=== PATIENT | male | born 1965 | race Caucasian/White ===

== ENCOUNTER 2019-05-07 15:05 | Outpatient (REF) | payer SELFPAY ==
[2019-05-07 16:33] LABS: Estmated Average Glucose 120; Hemoglobin A1C 5.8 % (4.0-6.0)
[2019-05-07 18:24] LABS: Chol HDL Ratio 6.54 mg/dL (1.0-5.00); Cholesterol 242 mg/dL (0-200); Glucose 98 mg/dL (65-115); HDL Cholesterol 37 mg/dL (60-100); LDL Cholesterol Calculated 180 mg/dL (50-129); LDL HDL Ratio 4.86 RATIO (0.00-3.22); Triglycerides 126 mg/dL (0-150)
== END 2019-05-07 15:06 | disposition home or self-care (01) ==
LOC: LAB 15:05
PROVIDERS: Family Provider Nurse Practitioner; PCP Nurse Practitioner; Visit Provider Dermatology
DX: Z13.9 Encounter for screening, unspecified (principal)
CPT/HCPCS: 80061; 82947; 83036

== ENCOUNTER 2019-07-30 13:09 | Emergency (ER) | payer OTHER, SELFPAY ==
[2019-07-30 13:18] VITALS: BP 122/97; PULSE 95; RESP 16; TEMP 36.8; O2SAT 96; BMI 32.5
--- NOTE | 2019-07-30 13:51 | ED_ITS ---
HPI - Extremity Injury (Upper) General: Chief Complaint: Extremity Injury, Upper Stated Complaint: swelling arm pain Time Seen by Provider: 07/30/19 13:43 Source: patient Mode of arrival: ambulatory Limitations: no limitations History of Present Illness: HPI narrative: Patient is a nice 53-year-old male who presents to ED today with complaints of an injury to his left arm. Patient states a few hours [place] and he was pulling on a gate to close it when the gate caught. He states he immediately felt a pop to his left elbow region and immediately began experiencing pain and swelling. Patient states his became concerned due to the amount of swelling and bruising. Patient states his contacted the orthopedic clinic who agreed to see him tomorrow. complaint: injury to: left Onset (ago): hour(s) Other Extremity Injury: Left: elbow and arm Other injuries: none Place: home Severity: moderate Relieving factors: immobilization Exacerbating factors: movement of extremity Context: other (pulling injury ) Associated symptoms: Reports no associated symptoms Treatments prior to arrival: cold therapy Review of Systems Const: Denies: fever(s) or chills Musc: Reports: extremity pain, extremity swelling, joint pain, joint swelling and limited range of motion Skin/Breast: Reports: other (bruising ) Neuro: Denies: numbness in extremities or sensory changes PFS ED PFSH: Social History (Updated 07/30/19 @ 11:11 by Yusra Gomes LPN) Smoking and tobacco status: former smoker Alcohol intake: former Adopted: No Household members: spouse Housing: House Marital status: Number of children: 3 Number of grandchildren: 2 Highest education level completed: High School Graduate service: No Pets and animals: Yes Physical Exam Const: COMMON NORMALS: no acute distress, average body habitus, patient oriented x3, no limitations, healthy appearing, alert and well nourished ORIENTATION/CONSCIOUSNESS: Yes oriented to person, Yes oriented to place and Yes oriented to time Extremity: GENERAL: Yes normal exam except as noted OTHER: pt has a large amount of swelling and bruising starting near L AC fossa and over bicep musculature; there is no obvious deformity but again the amount of swelling has probably hidden this; distal pulses intact; he reports sensory being equal bilaterally during exam; he has decreased elbow flexion and extension Neuro: COMMON NORMALS: patient oriented x3, no sensory deficits noted and gait normal SENSORIUM/ORIENTATION: Yes alert, Yes oriented to person, Yes oriented to place and Yes oriented to time Skin: OTHER: see extremity assessment Course Vital Signs: Vital signs: Vital Signs Temperature 98.3 F 07/30/19 13:18 Pulse Rate 95 07/30/19 13:18 Respiratory Rate 16 07/30/19 13:59 Blood Pressure 122/97 07/30/19 13:18 Pulse Oximetry 96 07/30/19 13:18 MDM - Extremity Injury (Upper) Imaging Data^: US soft tissue extremity : Radiologist's impression: [address] [address] Ultrasound Report Signed Patient: Jarod Gomes Unit #: [id number] : [id number] Age/Sex: 53 / M ADM Date: 07/30/19 Loc: ER Room/Bed: Attending Dr: Ordering Provider/Ordering MD: Jocelin Weaver Date of Service: 07/30/19 Procedure(s): US soft tissue/extremity 42628 Accession Number(s): [id number] Report Number: [id number] WS: [id number] INDICATION: Tendon rupture inner arm TECHNIQUE: Ultrasound soft tissue area of concern right arm FINDINGS: Diffuse subcutaneous edema with intramuscular hematoma likely due to recent trauma. Area of presumed hematoma measures 7.2 x 2.1 x 4.7 CM in the antecubital fossa. No significant vascularity. US/US soft tissue/extremity 95294 IMPRESSION: Subcutaneous edema with intramuscular hematoma measuring 7.2 CM in the area of injury antecubital fossa. Dictated By: Masood Brownlee MD Signed By: Masood Brownlee MD Signed Date/Time: 07/30/19 1503 DD/ 1459 Discharge Plan Discharge Patient Disposition: Home, Self-Care Clinical Impression: Rupture of distal biceps tendon Qualifiers: Encounter type: initial encounter Laterality: left Qualified Code(s): S46.212A - Strain of muscle, fascia and tendon of other parts of biceps, left arm, initial encounter Condition: Stable Prescriptions: New hydrocodone-acetaminophen 5-325 mg tablet 1 tab PO Q4H PRN (Reason: pain) Qty: 20 RF: 0 ibuprofen 800 mg tablet 800 mg PO Q8H PRN (Reason: pain) Qty: 20 RF: 0 Discharge Orders: Discharge Order (Routine); Ordered 07/30/19 Ordered By: Jocelin Weaver Referrals: Kong Vale, [employer] [Primary Care Provider] - Patient Instructions: Biceps Tendon Rupture Activity Restrictions/Additional Instructions: You are scheduled to see Dr. Alcala tomorrow 07/30 at 1:30. Coding Level of Care Code ED Bottoming Machine Operator for Chg Fwd Exam Expanded Problem Focused
--- NOTE | 2019-07-30 13:51 | US_ITS ---
WS: [id number] INDICATION: Tendon rupture inner arm TECHNIQUE: Ultrasound soft tissue area of concern right arm FINDINGS: Diffuse subcutaneous edema with intramuscular hematoma likely due to recent trauma. Area of presumed hematoma measures 7.2 x 2.1 x 4.7 CM in the antecubital fossa. No significant vascularity. US/US soft tissue/extremity 24803 IMPRESSION: Subcutaneous edema with intramuscular hematoma measuring 7.2 CM in the area of injury antecubital fossa.
[2019-07-30 13:59] VITALS: RESP 16
[2019-07-30] MEDS: morphine 4 mg/mL SDV 1 mL IM (13:59)
--- NOTE | 2019-07-30 14:54 | DCPLANNER ---
manager critical care was asked to schedule a follow up appointment for patient with ortho. manager critical care spoke with Pat at ortho, a follow up appointment is scheduled for , July 31, 2019 at 1:[address] Alcala.
[2019-07-30 15:17] VITALS: BP 122/84; PULSE 57; RESP 18; O2SAT 99
--- NOTE | 2019-08-28 14:12 | DCPLANNER ---
Patient did attend the appointment scheduled for 07.31.19 with ortho.
== END 2019-07-30 15:17 | disposition home or self-care (01) ==
PROVIDERS: Emergency Provider Physician Assistant; PCP Nurse Practitioner
DX: S46.212A Strain of muscle, fascia and tendon of other parts of biceps, left arm, initial encounter (principal); X50.9XXA Other and unspecified overexertion or strenuous movements or postures, initial encounter; Z87.891 Personal history of nicotine dependence
CPT/HCPCS: 12345; 76882; 96372; 99281; 99283; J2270

== ENCOUNTER → 2019-07-31 13:37 | Outpatient (BNVA) | payer OTHER, SELFPAY | PROVIDERS: PCP Nurse Practitioner; Referring Provider Nurse Practitioner; Visit Provider Orthopaedic Surgery | DX: S46.212A Strain of muscle, fascia and tendon of other parts of biceps, left arm, initial encounter (principal); X58.XXXA Exposure to other specified factors, initial encounter | CPT/HCPCS: 73080 ==

== ENCOUNTER 2019-08-06 08:58 | Day surgery (SDC) | payer OTHER, SELFPAY ==
[2019-08-06] VITALS (11 sets, daily range): BP systolic 99–148; BP diastolic 67–97; PULSE 69–80; RESP 13–18; TEMP 36.3–36.7; O2SAT 95–100
--- NOTE | 2019-08-06 | XR_ITS ---
WS: [id number] C-ARM RADIOGRAPHS LEFT ELBOW; 3 IMAGES HISTORY: LEFT bicep repair COMPARISON: 07/31/2019 Intraoperative imaging for torn biceps repair. Orthopedic clip is now present over the proximal radiu s. XR/XR elbow LT 2V [id number] IMPRESSION: Intraoperative imaging during biceps repair.
--- NOTE | 2019-08-06 | SCC_ITS ---
PROCEDURE: rupture of distal biceps from its insertion on the radial tuberosity repair 17.5 seconds of fluoroscopic guidance, for a cumulative dose of 0.71 mGy, was provided to Dr. Alcala by the radiology department. C-arm images of the LEFT elbow were saved for the patient's permanent record. MARY
[2019-08-06] MEDS: sodium chloride 0.9% 1,000 ML 100 ML IV (09:38)
--- NOTE | 2019-08-06 09:53 | ANES.PREANE2 ---
Pre-Anesthetic Assessment Pre-Anesthetic Assessment: Height/Weight: Height 1.83 m Weight 104.326 kg Temp Pulse Resp BP Pulse Ox 97.5 F L 75 18 110/74 99 08/06/19 09:21 08/06/19 09:21 08/06/19 09:21 08/06/19 09:21 08/06/19 09:21 Preop Diagnosis: Left distal biceps tendon Proposed Procedure: Operation Date: 08/06/19 10:50 Proposed Procedures p Open left distal biceps tendon repiar 39390 S46.219A(Left) - Xander Alcala MD Last intake: Intake Last Liquid Date 08/05/19 Last Liquid Time 22:00 Last Solid Date 08/05/19 Last Solid Time 21:30 Social: Social History: Tobacco (chews) and No alcohol Exam: Pre-Anes Outpt Exam: alert, oriented x 3, clear to auscultation bilaterally and regular rate & rhythm Airway: Submandibular: WNL Cervical ROM: WNL MP: 2 Dentition: Other (mult caps, implants) History/ROS: No significant history except as noted Pulmonary: Pulmonary: None reported CV/HEM: CV/HEM: None reported : : None reported Hepatic: Hepatic: None reported GI: GI: GERD (occ) Metabolic: Metabolic: None reported Musc/skel: Musc/skel: OA/DJD Neuropsych: Neuropsych: None reported Anesthetic Plan: ASA status: 2 Anesthesia: Anesthesia Evaluation, Eval. for regional block and General Risk of > 500 ml blood loss (7ml/kg in children): No Meds/Allergies Current Medications: Current Medications Generic Name Dose Route Start Last Admin Trade Name Freq PRN Reason Stop Dose Admin Sodium Chloride 1,000 mls @ 100 m ls/hr 08/06/19 09:15 08/06/19 09:38 Sodium Chloride 0.9% IV 08/07/19 09:14 100 mls/hr .Q10H KATHARINA Administration PFSH Anesthesia PFSH: Surgical History Hx of decompression of ulnar nerve Family History Father Hypertension Social History Smoking and tobacco status: former smoker Alcohol intake: former Adopted: No Household members: spouse Housing: House Marital status: Number of children: 3 Number of grandchildren: 2 Highest education level completed: High School Graduate service: No Pets and animals: Yes Data Anesthesia Cardiac Studies: No Data to Display
[2019-08-06] MEDS: midazolam 1 mg/mL INJ 2 mL 2 MG IVP (10:05)
[2019-08-06] MEDS: fentaNYL 50 mcg/mL INJ 2mL IVP (10:06)
--- NOTE | 2019-08-06 10:33 | W.PM.OPSUD ---
Surgery/Procedure H&P Update DATE OF PROCEDURE: August 06, 2019 DATE H&P PERFORMED: 07/31/19 PREOP DIAGNOSIS: Left distal biceps tendon PLANNED PROCEDURE: Operation Date: 08/06/19 10:50 Proposed Procedures p Open left distal biceps tendon repiar 95901 S46.219A(Left) - Xander Alcala MD
[2019-08-06] MEDS: clindamycin 600 MG/50 ML PREMIX 100 MG IV (11:00)
--- NOTE | 2019-08-06 12:20 | PM.OP ---
Operative Report Date of procedure: August 06, 2019 Pre-op Diagnosis: Left distal biceps tendon Post-op diagnosis: same Post-op Findings: Patient had a complete rupture of his distal biceps from its insertion on the radial tuberosity Implants: [employer] Endobutton Pathology: none sent Surgeon: Xander Alcala Anesthesia: General Estimated blood loss (mL): 10 Tourniquet time (min): 41 Complications: None Findings: Patient had a complete rupture of his distal biceps from its insertion on the radial tuberosity Condition: stable Disposition: PACU Procedure: The patient was taken to the operating room after he was given an interscalene block. He was prepped and draped in the supine position with his left arm exposed. He was given 600 mg of clindamycin IV. A timeout was performed. A transverse incision was made 4 cm along the most distal flexion crease of the elbow. Dissection was carried down bluntly through the fascia isolating superficial veins and the biceps tendon was identified proximally retracted to the wound. Large amounts of hematoma were evacuated from the distal arm more so than the forearm. The wound was irrigated with saline to remove hematoma and will provide better visibility. Approximately 1 cm of degenerative tendon removed from the end. The biceps tendon was fixed with a locking Ultratape suture applied in a Krak?w fashion. An Endobutton was applied just distal to the tip of the tendon. Tendon was sized and fit snugly through a 6 mm tunnel. Dissection was then carried down bluntly through the previous space to the radial tuberosity. A guidepin was driven into the tuberosity and its position verified under fluoroscopy. The pin was driven across the far cortex. A 6 mm reamer was passed over the near cortex and the Endobutton reamer over the far cortex. The guidepin was shuttled for ultra braid suture. 3 sutures on each side of the Endobutton were then shuttled through the tunnels. The Endobutton was pulled through and felt to engage. Intraoperative imaging showed satisfactory position of the Endobutton. The elbow was irrigated with saline. Deep tissues were closed with 2-0 Vicryl. The skin was closed with skin fabiola.
--- NOTE | 2019-08-06 12:25 | SUR.PHASEI ---
PT RESTING QUIETLY WITH ORAL AIRWAY IN PLACE VSS DRESSING D/I DISTAL FINGERS PINK WARM CAP REFILL <3 SECONDS,
--- NOTE | 2019-08-06 12:43 | SUR.PHASEI ---
PT AWAKE ORAL AIRWAY OUT PT DENIES PAIN, MOVES FINGERS TO COMMAND PT ON RA
[2019-08-06] MEDS: oxyCODONE-APAP 5-325 mg Tablet 1 TAB PO (13:19)
== END 2019-08-06 13:35 | disposition home or self-care (01) ==
PROVIDERS: PCP Nurse Practitioner; Visit Provider Orthopaedic Surgery
PROC: (CPT 23430; principal; 2019-08-06 10:50)
DX: S46.212A Strain of muscle, fascia and tendon of other parts of biceps, left arm, initial encounter (principal); X50.9XXA Other and unspecified overexertion or strenuous movements or postures, initial encounter; Z87.891 Personal history of nicotine dependence; K21.9 Gastro-esophageal reflux disease without esophagitis; M19.90 Unspecified osteoarthritis, unspecified site; Z82.49 Family history of ischemic heart disease and other diseases of the circulatory system
CPT/HCPCS: 24341; 12345; 73070; 76000; 96374; 96375; C1713; J1100; J1580; J2001; J2250; J2405; J2704; J2795; J3010; J3490; J7030

== ENCOUNTER 2019-08-06 15:02 | Outpatient (CLI) | payer OTHER, SELFPAY | END 2019-08-06 15:03 | disposition home or self-care (01) | LOC: SPT 15:03 | PROVIDERS: PCP Nurse Practitioner; Visit Provider Orthopaedic Surgery | DX: Z46.89 Encounter for fitting and adjustment of other specified devices (principal); S46.212D Strain of muscle, fascia and tendon of other parts of biceps, left arm, subsequent encounter; X58.XXXD Exposure to other specified factors, subsequent encounter | CPT/HCPCS: 97760; L3761 ==

== ENCOUNTER → 2019-10-10 11:58 | Outpatient (BNVA) | payer OTHER, SELFPAY | PROVIDERS: PCP Nurse Practitioner; Visit Provider Family Medicine | DX: E29.1 Testicular hypofunction (principal) | CPT/HCPCS: 84403 ==

== ENCOUNTER → 2020-09-08 07:43 | Outpatient (BNVA) | payer OTHER, SELFPAY | PROVIDERS: PCP Nurse Practitioner; Visit Provider Nurse Practitioner Family | DX: E29.1 Testicular hypofunction (principal); R53.83 Other fatigue; I10 Essential (primary) hypertension | CPT/HCPCS: 80053; 80061; 84403; 84443; G0103 ==

== ENCOUNTER → 2021-03-19 12:41 | Outpatient (BNVA) | payer OTHER, SELFPAY | PROVIDERS: PCP Nurse Practitioner; Visit Provider Nurse Practitioner Family | DX: M25.512 Pain in left shoulder (principal); M19.012 Primary osteoarthritis, left shoulder | CPT/HCPCS: 73030 ==

== ENCOUNTER → 2021-10-07 08:28 | Outpatient (BNVA) | payer OTHER, SELFPAY | PROVIDERS: PCP Nurse Practitioner; Visit Provider Family Medicine | DX: Z00.00 Encounter for general adult medical examination without abnormal findings (principal); E29.1 Testicular hypofunction | CPT/HCPCS: 80053; 80061; 84403; 85025 ==

== ENCOUNTER → 2022-08-22 10:20 | Outpatient (BNVA) | payer OTHER, SELFPAY | PROVIDERS: PCP Nurse Practitioner; Referring Provider Nurse Practitioner; Visit Provider Dermatology | DX: E29.1 Testicular hypofunction (principal); Z01.89 Encounter for other specified special examinations | CPT/HCPCS: 82040; 82607; 84270; 84403 ==

== ENCOUNTER → 2023-04-26 08:50 | Outpatient (BNVA) | payer OTHER, SELFPAY | PROVIDERS: PCP Nurse Practitioner; Visit Provider Family Medicine | DX: K52.9 Noninfective gastroenteritis and colitis, unspecified (principal); R79.89 Other specified abnormal findings of blood chemistry; E29.1 Testicular hypofunction; M25.521 Pain in right elbow; Z00.00 Encounter for general adult medical examination without abnormal findings; E03.9 Hypothyroidism, unspecified; Z13.6 Encounter for screening for cardiovascular disorders; M19.90 Unspecified osteoarthritis, unspecified site | CPT/HCPCS: 73080; 80053; 80061; 82040; 83036; 84270; 84403; 85025; 85651; 86140; 86160; 86162; 86235; 86255; 86376; G0103 ==

== ENCOUNTER → 2023-12-27 07:45 | Outpatient (BNVA) | payer OTHER, SELFPAY | PROVIDERS: PCP Nurse Practitioner; Visit Provider Nurse Practitioner Family | DX: S00.522A Blister (nonthermal) of oral cavity, initial encounter (principal); K12.1 Other forms of stomatitis | CPT/HCPCS: 87070 ==

== ENCOUNTER 2024-09-29 08:11 | Outpatient (CLI) | payer SELFPAY ==
--- NOTE | 2024-09-29 08:30 | CT_ITS ---
WS: [id number] CT PARANASAL SINUSES HISTORY: continue inner ear/sinus pain TECHNIQUE: Contiguous 2.0 mm axial images obtained through the sinuses. Images are reconstructed in sagittal and coronal planes. All CT scans at [facility] use at least one of these dose optimization techniques: automated exposure control; mA and/or kV adjustment per patient size (includes targeted exams where dose is matched to clinical indication); or iterative reconstruction. DLP: 354.05 mGy COMPARISON: None available. Frontal sinuses: Clear. Sphenoid sinus: Clear. Ethmoid sinuses: Clear. Maxillary sinus: Small mucous retention cyst floor of the LEFT maxillary sinus measures 10 x 15 mm. No air-fluid levels. Ostiomeatal unit: Ostiomeatal units are both patent. Normal appearance of the cribriform plate. LEFT deviation of the nasal septum. No septal spurring. No destructive bone lesions. Mastoid air cells are clear. Scattered calcifications in the distal carotid arteries. No occlusions. There is a very small amount of debris and thickening of the LEFT tympanic membrane. No soft tissue encasing the inner ear ossicles. CT/CT sinus w con [id number] IMPRESSION: 1. No air-fluid levels in the sinuses or acute sinusitis. 2. Small mucous retention cyst in the floor the LEFT maxillary sinus. 3. Patent ostiomeatal units. 4. Very minimal soft tissue thickening of the LEFT tympanic membrane.
[2024-09-29] MEDS: iohexol 350 mg/mL 500 mL Btl (per mL) IV (08:55)
== END 2024-09-29 08:12 | disposition home or self-care (01) ==
PROVIDERS: PCP Nurse Practitioner; Visit Provider Family Medicine
DX: J34.1 Cyst and mucocele of nose and nasal sinus (principal); J34.89 Other specified disorders of nose and nasal sinuses; H92.09 Otalgia, unspecified ear
CPT/HCPCS: 70487